=== PATIENT | male | born 1965 | race Caucasian/White ===

== ENCOUNTER → 2019-12-31 | Day surgery (SDC) | payer OTHER ==
[~2019-12-31] MED LIST: ACETAMINOPHEN 325 MG TABLET PO PRN; ALBUTEROL SULFATE 2.5 MG/3 ML NEBU. NEB PRN; ATROPINE 0.5 MG/5 ML DISP.SYRIN. IV PRN; IV RINGERS SOLUTION,LACTATED 1,000 ML IV SCH; OMEG100021 PO; ONDANSETRON PF 4 MG/2 ML VIAL. IV PRN; PHENOL ORAL SPRAY 177ML BOTTLE. MM PRN; PROPOFOL 40 ML IV ONE; diphenhydrAMINE 50 MG/ML VIAL IV PRN
[2019-12-31 10:16] VITALS: BP 145/87
--- NOTE | 2020-01-02 14:07 | PATHOLOGY ---
[facility] Accession Number: [id number] . 01 Material submitted: . PART A: colon - TRANSVERSE POLYP. Modifiers: transverse PART B: colon - ASCENDING POLYP. Modifiers: ascending PART C: colon - DESCENDING POLYP. Modifiers: descending PART D: rectum - RECTAL POLYP . 01 Clinical history: . None provided . 02 Diagnosis: A. Colon biopsies, transverse colon polyp: - Tubular adenoma. . B. Colon biopsies, ascending colon polyp: - Tubular adenoma. . C. Colon biopsies, descending colon polyp: - Tubular adenoma. . D. Colorectal biopsies, rectal polyp: - Hyperplastic polyp. ([facility] 01/02/2020) . [facility] 01/02/2020 0941 [facility] . 02 Comment: There is no high-grade dysplasia or evidence of malignancy. ([facility] 01/02/2020) . 02 Electronically signed: . Rafael Cha MD, Pathologist NPI- [id number] . 01 Gross description: . A. The specimen is received in formalin, labeled "Terrence Alau, transverse polyp". Received is a segment of pale martell soft tissue measuring 0.4 cm in maximum dimensions. The specimen is submitted entirely in cassette A1. . B. The specimen is received in formalin, labeled "Terrence Alau, ascending". Received are six segments of pale martell soft tissue ranging in size from 0.2 to 0.6 cm in maximum dimensions. The specimen is submitted entirely in cassette B1. . C. The specimen is received in formalin, labeled "Terrence Alau, descending". Received are multiple (greater than 10) segments of pale martell soft tissue ranging in size from 0.1 to 0.5 cm in maximum dimensions. The specimen is submitted entirely in cassette C1. . D. The specimen is received in formalin, labeled "Terrence Bennett, rectal polyp". Received are two segments of pale martell soft tissue measuring 0.3 cm each in maximum dimensions. The specimen is submitted entirely in cassette D1. ([facility]; 01/01/2020) QAC/QAC 01/02/2020 0939 Local . 02 Pathologist provided ICD-10: D12.3, D12.2, D12.4, K62.1 . 02 CPT . 790960, 776464, 466128, [id number] Specimen Comment: A courtesy copy of this report has been sent to [phone], [phone] Specimen Comment: [id number] Specimen Comment: Report sent to / DR ARNDT Performed at: 01 [facility] [address], [place] [id number] MD Jonathan Miller MD Phone: [phone] Performed at: 02 [facility] [address] [place], [place] [id number] MD Rafael Cha MD Phone: [phone]
== END ==
LOC: SURG 08:04
PROVIDERS: ATTEND Emergency Medicine
DX: Z12.11 Encounter for screening for malignant neoplasm of colon (principal); D12.3 Benign neoplasm of transverse colon; D12.2 Benign neoplasm of ascending colon; D12.4 Benign neoplasm of descending colon; K57.30 Diverticulosis of large intestine without perforation or abscess without bleeding; I10 Essential (primary) hypertension; E66.9 Obesity, unspecified; Z68.39 Body mass index [BMI] 39.0-39.9, adult; Z98.890 Other specified postprocedural states; Z72.89 Other problems related to lifestyle
CPT/HCPCS: 45380; 45385; 88305; J2704

== ENCOUNTER 2021-12-24 00:24 | Emergency (ER) | payer OTHER ==
[~2021-12-24] VITALS: Ht 175.3 cm; Wt 122.0 kg
[~2021-12-24 00:24] MED LIST changes: -ACETAMINOPHEN 325 MG TABLET PO PRN; -ALBUTEROL SULFATE 2.5 MG/3 ML NEBU. NEB PRN; -ATROPINE 0.5 MG/5 ML DISP.SYRIN. IV PRN; -IV RINGERS SOLUTION,LACTATED 1,000 ML IV SCH; -ONDANSETRON PF 4 MG/2 ML VIAL. IV PRN; -PHENOL ORAL SPRAY 177ML BOTTLE. MM PRN; -PROPOFOL 40 ML IV ONE; -diphenhydrAMINE 50 MG/ML VIAL IV PRN
[2021-12-24] MEDS ORDERED: LIDOCAINE (700MG/PATCH) PATCH. ONE (01:23)
[2021-12-24] MEDS ORDERED: CONTRAST GIVEN. MC PRN (01:30)
[2021-12-24] MEDS ORDERED: methylPREDNISolone SOD SUCC PF 125 MG/2 ML VIAL. IV ONE (01:30)
[2021-12-24] MEDS ORDERED: ORPHENADRINE CITRATE 60 MG/2 ML VIAL. IV ONE (01:30)
[2021-12-24] MEDS ORDERED: ACETAMINOPHEN 500 MG TABLET PO ONE (01:30)
[2021-12-24 01:37] LABS: BASO # 0.1 x10^3/uL (0.0-0.2); BASO % 1 % (0-3); EOS # 0.3 x10^3/uL (0.0-0.7); EOS % 3 % (0-3); HEMATOCRIT 44.2 % (39.0-53.0); HEMOGLOBIN 15.5 g/dL (13.0-17.5); LYMPH % 27 % (24-48); MEAN CORPUSCULAR HEMOGLOBIN 28 pg (25-35); MEAN CORPUSCULAR HGB CONC 35 g/dL (31-37); MEAN CORPUSCULAR VOLUME 80 fL (79-100); MONO # 0.8 x10^3/uL (0.0-1.1); MONO % 8 % (0-9); NEUT # 6.8 x10^3uL (1.8-7.7); NEUT % 62 % (31-73); PLATELET COUNT 251 x10^3/uL (140-400); RED CELL DISTRIBUTION WIDTH 13.3 % (11.5-14.5)
[2021-12-24 01:42] LABS: CALCIUM 9.2 mg/dL (8.5-10.1); CREATININE 0.8 mg/dL (0.7-1.3); GFR 100.7; POTASSIUM 3.7 mmol/L (3.5-5.1)
[2021-12-24 01:48] LABS: ALBUMIN 4.2 g/dL (3.4-5.0); ALBUMIN/GLOBULIN RATIO 1.2 (1.0-1.7); TOTAL BILIRUBIN 0.5 mg/dL (0.2-1.0); TOTAL PROTEIN 7.8 g/dL (6.4-8.2)
[2021-12-24] MEDS ORDERED: LIDOCAINE (700MG/PATCH) PATCH. TD ONE (02:00)
[2021-12-24] MEDS ORDERED: IOHEXOL 350 MG/ML 100 ML VIAL. IV ONE (02:00)
--- NOTE | 2021-12-24 02:44 | EKG ---
[address] [address] Test Date: 2021-12-24 Test Time: 02:31:09 Pat Name: ADRIEL SKY Department: Room: Gender: M Field Counsel: EYAD : 1965 Requested By: JAVI SANCHEZ Order Number: [id number] Reading MD: Yasir Perry Measurements Intervals [place] Rate: 72 P: 48 MA: 178 QRS: 38 QRSD: 94 T: 67 QT: 398 QTc: 437 Interpretive Statements SINUS RHYTHM Electronically Signed On 12-24-2021 16:26:33 GRID TRIMMER by Yasir Perry
--- NOTE | 2021-12-24 02:59 | RAD ---
PQRS Compliance Statement: One or more of the following individualized dose reduction techniques were utilized for this examinat ion: 1. Automated exposure control 2. Adjustment of the mA and/or kV according to patient size 3. Use of iterative reconstruction technique CT HEAD AND C-SPINE WO, CTA HEAD AND NECK W/WO CONTRAST 12/24/2021 1:07 AM INDICATION: Right upper extremity paresthesia COMPARISON: None available TECHNIQUE: Multiple axial CT images of the head were obtained from skull base to the vertex without i ntravenous contrast. 2-D reconstructions of the cervical spine. Multiple axial CT images of the head and neck were obtained after the intravenous administration of nonionic contrast. Coronal and sagitta l reformats are provided. Maximum intensity projection images are provided. Stenosis calculations for CT, MR, and conventional angiography are based upon measurements of the dis crys ICA diameter in accordance with the NASCET methodology. Stenosis calculations for carotid ultraso und studies are derived from validated velocity criteria which are known to correlate with the NASCET methodology. FINDINGS: Ventricles, sulci and basal cisterns are within normal limits. There is no hydrocephalus. Chavez-white matter differentiation is normal. There is no acute intracranial hemorrhage. There is no mass, mass e ffect or midline shift. Posterior fossa is normal in appearance. Visualized portions of the orbits are normal. Paranasal sinuses are well aerated. Mastoid air cells a re well aerated. Scalp and calvaria are normal. Cervical spine: Alignment of the cervical spine is normal. Skull base is intact. Craniocervical junction is normal in appearance. Atlantoaxial articulation is normal. Vertebral body heights are maintained without evidence for acute fracture. At C5-C6, there is a posterior disc osteophyte complex with mild facet arthropathy and mild uncoverte bral joint disease resulting in mild/moderate right and mild left neuroforaminal stenosis. No signifi cant spinal canal stenosis. At C6-C7, there is a posterior disc osteophyte complex with mild facet ar thropathy and mild to moderate uncovertebral joint disease resulting in moderate bilateral neural for aminal stenosis and mild osseous spinal canal stenosis. There is no prevertebral soft tissue swelling. Thyroid gland is normal in appearance. Visualized port ions of the lung apices are normal without evidence for suspicious pulmonary nodule or infiltrate. No pathologically enlarged cervical lymphadenopathy. Pharynx and larynx appear intact. Vascular findings: There is a normal three-vessel aortic arch. Origins of the brachiocephalic vessels are widely patent. There is focal inflammation surrounding the proximal right subclavian artery immediately beyond the origin. There is mild irregularity of the right vertebral artery. Left vertebral artery is dominant. Right common carotid artery is normal in course and caliber. No significant atherosclerotic changes a re identified at the right carotid bifurcation. No significant stenosis of the right cervical interna l carotid artery. External carotid artery is widely patent. Left common carotid artery is normal in course and caliber. No significant atherosclerotic changes ar e identified at the left carotid bifurcation. No significant stenosis of the left cervical internal c arotid artery. External carotid artery is widely patent. Intracranial segments of internal carotid arteries are normal in course and caliber. There is mild ca lcified atheromatous plaque involving the cavernous segments without significant stenosis. Origins of the ophthalmic segments of the internal carotid artery appears widely patent. Middle cerebral arteri es are normal in course and caliber with patent sylvian branches. Anterior cerebral arteries are nor mal in course and caliber. Anterior communicating artery is visualized. Basilar artery is normal in course and caliber. Superior cerebellar arteries are widely patent. Poste rior cerebral arteries are normal in course and caliber. There is no aneurysm, vascular malformation or high-grade stenosis/large vessel occlusion involving c ircle of Neil. Superior sagittal sinus is patent. IMPRESSION: 1. There is no evidence for acute intracranial hemorrhage. 2. There is no evidence for hemodynamically significant carotid stenosis. There is inflammation surro unding the right proximal subclavian artery without definite intimal thickening or dissection. There is irregularity of the right vertebral artery without definite dissection. Consideration may be given for vascular injury of the right subclavian and correlation with any recent trauma is recommended. V asculitis is a differential consideration, although focal involvement is atypical. If there is persis tent clinical concern, catheter angiography could be of benefit for further assessment. 3. There is no aneurysm, vascular malformation or high-grade stenosis/large vessel occlusion involvin g the [place] of Neil. 4. No acute fracture of the cervical spine. Mild cervical spondylosis as detailed above. Electronically signed by: Ludivina Phillip MD (12/24/2021 2:56 AM) [facility]
--- NOTE | 2021-12-24 03:03 | RAD ---
PQRS Compliance Statement: One or more of the following individualized dose reduction techniques were utilized for this examinat ion: 1. Automated exposure control 2. Adjustment of the mA and/or kV according to patient size 3. Use of iterative reconstruction technique CTA CHEST 12/24/2021 1:07 AM INDICATION: Right upper extremity paresthesia COMPARISON: None available TECHNIQUE: Axial CT images of the chest were obtained after the intravenous administration of nonioni c contrast. Coronal and sagittal reformats are provided. Maximum intensity projection images of the t horacic vasculature are provided. FINDINGS: The thyroid gland is normal in appearance. There are no pathologically enlarged axillary, mediastinal or hilar lymph nodes. The heart size is within normal limits. No significant pericardial effusion. T horacic aorta is normal in course and caliber.. There is inflammation involving the proximal right ramirez bclavian artery with ill-defined soft tissue immediately adjacent. There is mild irregularity of the proximal right vertebral artery with similar adjacent ill-defined soft tissue. Consideration may be g iven for traumatic injury. There is inadequate opacification of the pulmonary arterial system. No aortic dissection or aneurysm. There are no suspicious solid noncalcified pulmonary nodules. There are no pulmonary infiltrates. The re are no pleural effusions. No pulmonary vascular congestion or pneumothorax. Diffuse hepatic steatosis. No suspicious osseous lesions are visualized. IMPRESSION: There is no evidence for acute or chronic pulmonary embolism. There is inflammation involving the proximal right subclavian artery with ill-defined soft tissue imm ediately adjacent. There is mild irregularity of the proximal right vertebral artery with similar adj acent ill-defined soft tissue. Consideration may be given for traumatic injury. Correlate with any tr action type injury. A definite dissection or ruptured vessel is not visualized, however healed vascul ar injury could have similar appearance. Findings could be seen with vasculitis, although focal invol vement of the vessels is atypical. No thrombus is visualized. The distal right subclavian and axillar y artery appear patent. Electronically signed by: Ludivina Phillip MD (12/24/2021 3:00 AM) [facility]
--- NOTE | 2021-12-24 04:08 | PHYS DOC ---
Past History Additional Past Medical Histor: sleep apnea Past Surgical History: Other Additional Past Surgical Histo: rt knee tendon repair Alcohol Use: None Adult General Chief Complaint Chief Complaint: SHOULDER INJURY HPI HPI The patient is a 56-year-old male with a history of obesity and sleep apnea and who is otherwise without chronic medical problems for which he takes daily medication. He presents for evaluation of focal sharp constant discomfort un derneath his right shoulder blade and radiating down his right arm, with onset about 1 week ago without any trauma that the patient can recollect, and continuing without improvement until the present. Severity about 7 out of 10 at present. Discomfort is present when the patient is at rest, moving around, using his arm or resting his arm. Nothing seems to make discomfort better or worse. It is not reproducible to palpation. Associated mild tingling numbness of the fourth and fifth digits of the right hand. Associated mild right-sided neck discomfort without midline neck discomfort which is, like the scapular pain, not reproducible to palpation. Patient has had mild nasal congestion and rhinorrhea over the past few days, but symptoms started well before he developed these. No associated fevers, neck stiffness/rigidity/meningismus, headache, focal or lateralizing weakness, vision changes, shortness of breath or chest pain of any kind, abdominal pain of any kind, flank pain, midline back pain, dysuria, he maturia, polyuria or oliguria, changes in bowel habits. Patient is alert and oriented, pleasantly and appropriately interactive and in absolutely no acute distress, ambulatory into the emergency department with a narrow, steady gait. Vital signs are appropriate here. Review of Systems Review of Systems A 12 point review of systems was completed and was negative except where noted in HPI above. Current Medications Current Medications Current Medications Medications (Trade) Dose Ordered Sig/[facility] Start Time Stop Time Status Last Admin Dose Admin Acetaminophen (Tylenol) 1,000 mg 1X ONCE 12/24/21 01:30 12/24/21 01:31 DC 12/24/21 01:37 1,000 MG Info (Do NOT chart on this entry -- for MONITORING) 1 each PRN DAILY PRN 12/24/21 01:30 12/26/21 01:29 Iohexol (Omnipaque 350 Mg/ml) 100 ml 1X ONCE 12/24/21 02:00 12/24/21 02:01 DC 12/24/21 01:48 100 ML Lidocaine (Lidoderm) 1 patch STK-MED ONCE 12/24/21 01:23 12/24/21 01:23 DC Methylprednisolone Sodium Succinate (SOLU-Medrol 125MG VIAL) 125 mg 1X ONCE 12/24/21 01:30 12/24/21 01:31 DC 12/24/21 01:37 125 MG Orphenadrine Citrate (Norflex) 30 mg 1X ONCE 12/24/21 01:30 12/24/21 01:31 DC 12/24/21 01:37 30 MG Allergies Allergies Allergies Coded Allergies Type Severity Reaction Last Updated Verified NSAIDS (Non-Steroidal Anti-Inflamma Allergy Unknown 12/23/19 Yes aspirin Allergy Unknown 12/23/19 Yes Physical Exam Physical Exam Older male appearing nontoxic and in no acute distress. Head is normocephalic and atraumatic. Neck is supple and nontender. No neck stiffness/rigidity/meningismus seen and patient ranges neck fully in all dimensions without discomfort or distress. Oropharynx is moist. Lungs are clear to auscultation at all stations. There is a normal S1 and S2 without rubs or gallops and capillary refill is appropriate, less than 2 seconds globally. Abdomen is soft, nontender and nondistended. Skin is warm and dry without cyanosis, clubbing or edema. Psychiatrically, the patient demonstrates appropriate mood and affect and is alert. Evaluation of the extremities reveals BUEs and BLEs neurovascularly intact distally with strength 5 out of 5, sensation intact light touch in all nerve distributions, radial, DP and PT pulses 2+ and equal bilaterally, capillary refill less than 2 seconds, hands and feet warm and well-perfused. No dependent peripheral edema distally. No calf tenderness or swelling bilaterally. Homans test is negative bilaterally. Neurologically, cranial nerves II through XII are intact and there are no lateralizing deficits seen. Speech is normal. Language is normal. Coordination is normal. There is no dysmetria with finger-nose or [id number] bilaterally. Strength is 5 out of 5 in all joints of bilateral upper and lower extremities. Sensation is intact to light touch in bilateral upper and lower extremities. Patient ambulates with a narrow, steady, non-ataxic gait here in the emergency department and is alert and oriented x4. Current Patient Data Vital Signs Vital Signs Date Time Temp Pulse Resp B/P (MAP) Pulse Ox O2 Delivery O2 Flow Rate FiO2 12/24/21 01:38 73 20 137/85 (102) 96 Room Air 12/24/21 00:25 98.1 Lab Results Laboratory Tests Test 12/24/21 00:40 White Blood Count 11.0 x10^3/uL (4.0-11.0) Red Blood Count 5.50 x10^6/uL (4.30-5.70) Hemoglobin 15.5 g/dL (13.0-17.5) Hematocrit 44.2 % (39.0-53.0) Mean Corpuscular Volume 80 fL (79-100) Mean Corpuscular Hemoglobin 28 pg (25-35) Mean Corpuscular Hemoglobin Concent 35 g/dL (31-37) Red Cell Distribution Width 13.3 % (11.5-14.5) Platelet Count 251 x10^3/uL (140-400) Neutrophils (%) (Auto) 62 % (31-73) Lymphocytes (%) (Auto) 27 % (24-48) Monocytes (%) (Auto) 8 % (0-9) Eosinophils (%) (Auto) 3 % (0-3) Basophils (%) (Auto) 1 % (0-3) Neutrophils # (Auto) 6.8 x10^3uL (1.8-7.7) Lymphocytes # (Auto) 3.0 x10^3/uL (1.0-4.8) Monocytes # (Auto) 0.8 x10^3/uL (0.0-1.1) Eosinophils # (Auto) 0.3 x10^3/uL (0.0-0.7) Basophils # (Auto) 0.1 x10^3/uL (0.0-0.2) Sodium Level 141 mmol/L (136-145) Potassium Level 3.7 mmol/L (3.5-5.1) Chloride Level 100 mmol/L (98-107) Carbon Dioxide Level 30 mmol/L (21-32) Anion Gap 11 (6-14) Blood Urea Nitrogen 17 mg/dL (8-26) Creatinine 0.8 mg/dL (0.7-1.3) Estimated GFR (Cockcroft-Gault) 100.7 BUN/Creatinine Ratio 21 (6-20) H Glucose Level 139 mg/dL (70-99) H Calcium Level 9.2 mg/dL (8.5-10.1) Total Bilirubin 0.5 mg/dL (0.2-1.0) Aspartate Amino Transferase (AST) 36 U/L (15-37) Alanine Aminotransferase (ALT) 63 U/L (16-63) Alkaline Phosphatase 124 U/L (46-116) H Troponin I High Sensitivity 9 ng/L (4-75) Total Protein 7.8 g/dL (6.4-8.2) Albumin 4.2 g/dL (3.4-5.0) Albumin/Globulin Ratio 1.2 (1.0-1.7) EKG EKG Sinus rhythm, rate 72, no acute ST elevation or depression, [place] 178, QRS 94, QTc 437, EP interpretation. Nonischemic tracing, intervals appropriate. Radiology/Procedures Radiology/Procedures CT HEAD AND C-SPINE WO, CTA HEAD AND NECK W/WO CONTRAST 12/24/2021 1:07 AM INDICATION: Right upper extremity paresthesia COMPARISON: None available TECHNIQUE: Multiple axial CT images of the head were obtained from skull base to the vertex without intravenous contrast. 2-D reconstructions of the cervical spine. Multiple axial CT images of the head and neck were obtained after the intravenous administration of nonionic contrast. Coronal and sagittal reformats are provided. Maximum intensity projection images are provided. Stenosis calculations for CT, MR, and conventional angiography are based upon measurements of the distal ICA diameter in accordance with the NASCET methodology. Stenosis calculations for carotid ultrasound studies are derived from validated velocity criteria which are known to correlate with the NASCET methodology. FINDINGS: Ventricles, sulci and basal cisterns are within normal limits. There is no hydrocephalus. Chavez-white matter differentiation is normal. There is no acute intracranial hemorrhage. There is no mass, mass effect or midline shift. Posterior fossa is normal in appearance. Visualized portions of the orbits are normal. Paranasal sinuses are well aerated. Mastoid air cells are well aerated. Scalp and calvaria are normal. Cervical spine: Alignment of the cervical spine is normal. Skull base is intact. Craniocervical junction is normal in appearance. Atlantoaxial articulation is normal. Vertebral body heights are maintained without evidence for acute fracture. At C5-C6, there is a posterior disc osteophyte complex with mild facet arthropathy and mild uncovertebral joint disease resulting in mild/moderate right and mild left neuroforaminal stenosis. No significant spinal canal stenosis. At C6-C7, there is a posterior disc osteophyte complex with mild facet arthropathy and mild to moderate uncovertebral joint disease resulting in moderate bilateral neural foraminal stenosis and mild osseous spinal canal stenosis. There is no prevertebral soft tissue swelling. Thyroid gland is normal in appearance. Visualized portions of the lung apices are normal without evidence for suspicious pulmonary nodule or infiltrate. No pathologically enlarged cervical lymphadenopathy. Pharynx and larynx appear intact. Vascular findings: There is a normal three-vessel aortic arch. Origins of the brachiocephalic vessels are widely patent. There is focal inflammation surrounding the proximal right subclavian artery immediately beyond the origin. There is mild irregularity of the right vertebral artery. Left vertebral artery is dominant. Right common carotid artery is normal in course and caliber. No significant atherosclerotic changes are identified at the right carotid bifurcation. No significant stenosis of the right cervical internal carotid artery. External carotid artery is widely patent. Left common carotid artery is normal in course and caliber. No significant atherosclerotic changes are identified at the left carotid bifurcation. No significant stenosis of the left cervical internal carotid artery. External carotid artery is widely patent. Intracranial segments of internal carotid arteries are normal in course and caliber. There is mild calcified atheromatous plaque involving the cavernous segments without significant stenosis. Origins of the ophthalmic segments of the internal carotid artery appears widely patent. Middle cerebral arteries are normal in course and caliber with patent sylvian branches. Anterior cerebral arteries are normal in course and caliber. Anterior communicating artery is visualized. Basilar artery is normal in course and caliber. Superior cerebellar arteries are widely patent. Posterior cerebral arteries are normal in course and caliber. There is no aneurysm, vascular malformation or high-grade stenosis/large vessel occlusion involving kar[place] of Neil. Superior sagittal sinus is patent. IMPRESSION: 1. There is no evidence for acute intracranial hemorrhage. 2. There is no evidence for hemodynamically significant carotid stenosis. There is inflammation surrounding the right proximal subclavian artery without definite intimal thickening or dissection. There is irregularity of the right vertebral artery without definite dissection. Consideration may be given for vascular injury of the right subclavian and correlation with any recent trauma is recommended. Vasculitis is a differential consideration, although focal involvement is atypical. If there is persistent clinical concern, catheter angiography could be of benefit for further assessment. 3. There is no aneurysm, vascular malformation or high-grade stenosis/large vessel occlusion involving the kar[place] of Neil. 4. No acute fracture of the cervical spine. Mild cervical spondylosis as detailed above. Electronically signed by: Shaina Jiménez MD (12/24/2021 2:56 AM) [facility] DICTATED AND SIGNED BY: SHAINA JIMÉNEZ MD DATE: 12/24/21 0246 CC: JAVI SANCHEZ MD; JOSE ARNDT DO ~MTH0 0 CTA CHEST 12/24/2021 1:07 AM INDICATION: Right upper extremity paresthesia COMPARISON: None available TECHNIQUE: Axial CT images of the chest were obtained after the intravenous administration of nonionic contrast. Coronal and sagittal reformats are provide d. Maximum intensity projection images of the thoracic vasculature are provided. FINDINGS: The thyroid gland is normal in appearance. There are no pathologically enlarged axillary, mediastinal or hilar lymph nodes. The heart size is within normal limits. No significant pericardial effusion. Thoracic aorta is normal in course and caliber.. There is inflammation involving the proximal right subclavian artery with ill-defined soft tissue immediately adjacent. There is mild irregularity of the proximal right vertebral artery with similar adjacent ill- defined soft tissue. Consideration may be given for traumatic injury. There is inadequate opacification of the pulmonary arterial system. No aortic dissection or aneurysm. There are no suspicious solid noncalcified pulmonary nodules. There are no pulmonary infiltrates. There are no pleural effusions. No pulmonary vascular congestion or pneumothorax. Diffuse hepatic steatosis. No suspicious osseous lesions are visualized. IMPRESSION: There is no evidence for acute or chronic pulmonary embolism. There is inflammation involving the proximal right subclavian artery with ill- defined soft tissue immediately adjacent. There is mild irregularity of the proximal right vertebral artery with similar adjacent ill-defined soft tissue. Consideration may be given for traumatic injury. Correlate with any traction type injury. A definite dissection or ruptured vessel is not visualized, however healed vascular injury could have similar appearance. Findings could be seen with vasculitis, although focal involvement of the vessels is atypical. No thrombus is visualized. The distal right subclavian and axillary artery appear patent. Electronically signed by: Shaina Jiménez MD (12/24/2021 3:00 AM) [facility] DICTATED AND SIGNED BY: SHAINA JIMÉNEZ MD DATE: 12/24/21 0256 CC: JAVI SANCHEZ MD; JOSE ARNDT DO ~MTH0 0 Heart Score C/O Chest Pain: No Risk Factors: Risk Factors: DM, Current or recent (<one month) smoker, HTN, HLP, family history of CAD, obesity. Risk Scores: Risk Factors: DM, Current or recent (<one month) smoker, HTN, HLP, family history of CAD, obesity. Course & Med Decision Making Course & Med Decision Making Labs and EKG unremarkable. CT imaging with findings of inflammation associated with the proximal right subclavian artery and the proximal right vertebral artery, also with some irregularity noted to the base of the right vertebral artery. These findings do anatomically correlate with the location of the patient's symptoms. Patient adamantly denies any provocative trauma. He does recollect that he first noticed symptoms after a coughing fit. Clinically, Mr. Bennett has an acute C8 radiculopathy. Unclear exactly how this relates to the imaging findings above but will have to assume that there is a relationship between symptoms and vascular abnormalities until proven otherwise. Needs vascular surgical evaluation to start. Patient is feeling a little better after methylprednisolone and Norflex here in the emergency department. Will give a small dose of fentanyl. Spoke with Dr. Mendoza of vascular surgery at [facility] about the case; he he is in agreement with transfer to that facility for admission and vascular surgical attention. Discussed the case with the hospitalist resident at [facility] who graciously accepts Mr. Bennett in transfer on behalf of Dr. Maier. Dragon Disclaimer Dragon Disclaimer This electronic medical record was generated, in whole or in part, using a voice recognition dictation system. Departure Departure: Impression: Primary Impression: Cervical radiculopathy at C8 Additional Impression: Vasculitis Disposition: 02 SHORT TERM HOSPITAL Condition: STABLE Referrals: JOSE ARNDT DO (PCP) Problem Qualifiers JAVI SANCHEZ MD Dec 24, 2021 04:08
[2021-12-24 04:40] VITALS: BP 176/120
== END 2021-12-24 05:00 | disposition short-term general hospital (02) ==
LOC: ER 00:24
DX: M54.12 Radiculopathy, cervical region (principal); I77.6 Arteritis, unspecified; E66.9 Obesity, unspecified; G47.30 Sleep apnea, unspecified; Z68.39 Body mass index [BMI] 39.0-39.9, adult
CPT/HCPCS: 36415; 70450; 70496; 70498; 71275; 72125; 80053; 84484; 85025; 87426; 93005; 96374; 96375; 99285; J2360; J2930; J3010; Q9967